=== PATIENT | female | born 1955 ===

== ENCOUNTER 2016-12-14 15:46 | Observation (INO) | payer MEDICARE, MEDICAID ==
[2016-12-14 15:51] VITALS: BMI 35.0
[2016-12-14] MEDS ORDERED: Sodium Chloride 0.9% 1,000 ML IV ONE (15:55)
[2016-12-14 16:26] LABS: ADD MANUAL DIFF? NO
[2016-12-14 16:39] LABS: BASO # 0.02 K/mm3 (0.0-2.0); BASO % 0.5 % (0.0-3.0); BLOOD UREA NITROGEN 14 mg/dL (7-21); CALCIUM 9.6 mg/dL (8.4-10.5); CARBON DIOXIDE 23 mmol/L (21-33); CHLORIDE 98 mmol/L (98-107); EOS # 0.1 (0.0-0.7); EOS % 1.2 % (1.5-5.0); GFR AFRICAN-AMERICAN > 60; GRAN # 2.54 (1.4-6.5); GRAN % 61.4 % (50.0-68.0); HEMATOCRIT 39.3 % (36.0-48.0); LYMPH # 1.3 (1.2-3.4); LYMPH % 30.8 % (22.0-35.0); MAGNESIUM 1.4 mg/dL (1.7-2.2); MEAN CELL VOLUME 86.9 fL (80.0-105.0); MEAN CORPUSCULAR HEMOGLOBIN 31.4 pg (25.0-35.0); MEAN CORPUSCULAR HGB CONC 36.1 g/dl (31.0-37.0); MEAN PLATELET VOLUME 11.5 fl (7.0-11.0); MONO # 0.3 (0.1-0.6); MONO % 6.1 % (1.0-6.0); PLATELET COUNT 216 10^3/uL (120.0-450.0); POTASSIUM 3.9 mmol/L (3.6-5.0); RED CELL DISTRIBUTION WIDTH 12.8 % (11.5-14.5); SODIUM 133 mmol/L (132-148); TOTAL PROTEIN 7.5 g/dL (5.8-8.3); WHITE BLOOD COUNT 4.1 10^3/ul (4.5-11.0)
[2016-12-14 16:40] LABS: ALB/GLOB RATIO 1.2 (1.1-1.8); ALKALINE PHOSPHATASE 244 U/L (38-133); ALT/SGPT 113 U/L (7-56); AST/SGOT 89 U/L (15-39); BILIRUBIN,TOTAL 0.7 mg/dL (0.2-1.3)
--- NOTE | 2016-12-14 16:40 | ED PDOC ---
Arrival/HPI - General Chief Complaint: Chest Pain Time Seen by Provider: 12/14/16 15:49 Historian: Patient - History of Present Illness Narrative History of Present Illness (Text): 12/14/16 16:18 Paige Agosto is a 61 year old female whose past medical history includes diabetes, who presents to the emergency department complaining of elevated blood sugar, headache/dizziness, dry cough, and mid-sternal chest pain that radiates to the right arm. Patient also states upon arrival as per EMS she was told she fell but has no recollection of this event. Patient was seen at [facility] for elevated blood sugar. Patient reports she just recently ran out of insulin and has only been using her sugar pills. Patient denies any fever, chills, shortness of breath, nausea, vomiting, diarrhea, urinary symptoms , back pain, neck pain, or any other complaints. PMD: None [facility] Provider Time/Duration: 24 hours Symptom Onset: Gradual Symptom Course: Unchanged Activities at Onset: Light Context: Home Past Medical History - Provider Review Nursing Documentation Reviewed: Yes - Reproductive Menopause: Yes - Cardiac Hx Hypertension: Yes Other/Comment: SD - Pulmonary Hx Asthma: Yes - Neurological HX Cerebrovascular Accident: Yes (8 years ago, uses cane) - HEENT Hx HEENT Disorder: No - Renal Hx Renal Disorder: No - Endocrine/Metabolic Hx Diabetes Mellitus Type 1: Yes - Hematological/Oncological Hx Hepatitis C: Yes - Integumentary Hx Dermatological Disorder: No - Musculoskeletal/Rheumatological Hx Arthritis: Yes Hx Falls: Yes - Gastrointestinal Hx Gastroesophageal Reflux: Yes Hx Pancreatitis: Yes - Genitourinary/Gynecological Hx Genitourinary Disorders: No - Psychiatric Hx Anxiety: Yes Hx Depression: Yes Hx Substance Use: No - Surgical History Hx Hysterectomy: Yes Other/Comment: R ankle surgery - Anesthesia Hx Anesthesia Reactions: No Hx Malignant Hyperthermia: No Family/Social History - Physician Review Nursing Documentation Reviewed: Yes Family/Social History: No Known Family HX Smoking Status: Current Some Days Smoker Hx Alcohol Use: Yes Hx Substance Use: No Allergies/Home Meds Allergies/Adverse Reactions: Allergies aspirin Allergy (Verified 05/29/16 13:05) RASH ibuprofen [From Motrin] Allergy (Verified 05/29/16 13:05) RASH Home Medications: Home Meds Medication Instructions Recorded Confirmed Gabapentin [Neurontin] 300 mg PO TID PRN 12/14/16 12/14/16 traMADol [Ultram] 50 mg PO TID PRN 12/14/16 12/14/16 Review of Systems - Physician Review All systems were reviewed & negative as marked: Yes - Review of Systems Constitutional: Normal. absent: Fevers Eyes: Normal ENT: Normal Respiratory: Cough (Dry). absent: SOB, Sputum Cardiovascular: Chest Pain (Midsternal chest pain that radiates to the right arm ), Syncope (Possible) Gastrointestinal: Normal Genitourinary Female: Normal Musculoskeletal: Normal Skin: Normal Neurological: Headache, Dizziness Endocrine: Normal Hemo/Lymphatic: Normal Psychiatric: Normal Physical Exam Vital Signs Temp Pulse Resp BP Pulse Ox 12/14/16 18:06 76 18 113/56 L 97 12/14/16 16:56 98 F 77 16 105/67 96 12/14/16 16:02 98.2 F 80 18 112/70 98 Finger Stick Blood Glucose: 487 - Systems Exam Head: Present: Atraumatic, Normocephalic Pupils: Present: PERRL Extroacular Muscles: Present: EOMI Conjunctiva: Present: Normal Mouth: Present: Moist Mucous Membranes Neck: Present: Normal Range of Motion Respiratory/Chest: Present: Clear to Auscultation, Good Air Exchange. No: Respiratory Distress, Accessory Muscle Use Cardiovascular: Present: Regular Rate and Rhythm, Normal S1, S2. No: Murmurs Abdomen: Present: Normal Bowel Sounds. No: Tenderness, Distention, Peritoneal Signs Back: Present: Normal Inspection Upper Extremity: Present: Normal Inspection. No: Cyanosis, Edema Lower Extremity: Present: Normal Inspection. No: Edema Neurological: Present: GCS=15, CN II-XII Intact, Speech Normal Skin: Present: Warm, Dry, Normal Color. No: Rashes Psychiatric: Present: Alert, Oriented x 3, Normal Insight, Normal Concentration Medical Decision Making ED Course and Treatment: 12/14/16 16:18 Impression: 61 year old female complaining of mid-sternal chest pain that radiates to right arm. Reported elevated blood sugar & possible syncopal episode. Plan: -- Head CT -- Chest X-ray -- EKG -- VBG -- Urine Culture -- Labs, Cardiac Enzymes -- IV Fluids -- Reassess and disposition Prior Visits: Notes and results from previous visits were reviewed. Patient was last seen in the emergency department on 05/29/16 for back pain. Progress Notes: 12/14/16 19:[address] Avila who accepts patient into his service and will admit patient. - Lab Interpretations Lab Results: 12/14/16 16:20 12/14/16 16:20 Lab Results 12/14/16 16:20: pO2 45, VBG pH 7.30 L, VBG pCO2 47.0, VBG HCO3 23.1, VBG Total CO2 24.5, VBG O2 Sat (Calc) 80.5 H, VBG Base Excess -3.6 L, VBG Potassium 4.1, Sodium 135.0, Chloride 99.0, Glucose 606 H*, Lactate 2.3 H, FiO2 21.0, Venous Blood Potassium 4.1 12/14/16 16:20: Sodium 133, Chloride 98, Potassium 3.9, Carbon Dioxide 23, Anion Gap 16, BUN 14, Creatinine 0.8, Est GFR ( Amer) > 60, Est GFR (Non- Af Amer) > 60, Random Glucose 617 H* D, Calcium 9.6, Magnesium 1.4 L, Total Bilirubin 0.7, AST 89 H, ALT 113 H, Alkaline Phosphatase 244 H, Lactate Dehydrogenase 449, Total Creatine Kinase 43, Troponin I < 0.01, Total Protein 7.5, Albumin 4.1, Globulin 3.4, Albumin/Globulin Ratio 1.2 12/14/16 16:20: WBC 4.1 L, RBC 4.52, Hgb 14.2, Hct 39.3, MCV 86.9, MCH 31.4, MCHC 36.1, RDW 12.8, Plt Count 216, MPV 11.5 H, Gran % 61.4, Lymph % (Auto) 30.8 , Robertson % (Auto) 6.1 H, Eos % (Auto) 1.2 L, Baso % (Auto) 0.5, Gran # 2.54, Lymph # 1.3, Robertson # 0.3, Eos # 0.1, Baso # 0.02 12/14/16 15:52: Urine Color Yellow, Urine Appearance Clear, Urine pH 6.0, Ur Specific [place] 1.010, Urine Protein Negative, Urine Glucose (UA) >=1000, Urine Ketones Trace H, Urine Blood Negative, Urine Nitrate Negative, Urine Bilirubin Negative, Urine Urobilinogen 0.2, Ur Leukocyte Esterase Negative I have reviewed the lab results: Yes - RAD Interpretation Radiology Orders: 12/14/16 15:53 HEAD W/O CONTRAST [CT] Stat CHEST PORTABLE [RAD] Stat Director Digital Communications: Radiologist - Medication Orders Current Medication Orders: Discontinued Medications Acetaminophen (Tylenol 325mg Tab) 975 mg PO STAT STA Stop: 12/14/16 17:44 Last Admin: 12/14/16 18:04 Dose: 975 mg Sodium Chloride (Sodium Chloride 0.9%) 1,000 mls @ 250 mls/hr IV .Q4H ONE Stop: 12/14/16 19:54 Last Admin: 12/14/16 16:05 Dose: 250 mls/hr Insulin Human Regular (Humulin R) 6 units IV STAT STA Stop: 12/14/16 17:21 Last Admin: 12/14/16 17:35 Dose: 6 units - Scribe Statement The provider has reviewed the documentation as recorded by the Sanford Buchanan Provider Attestation: All medical record entries made by the Sanford were at my direction and personally dictated by me. I have reviewed the chart and agree that the record accurately reflects my personal performance of the history, physical exam, medical decision making, and the department course for this patient. I have also personally directed, reviewed, and agree with the discharge instructions and disposition. Disposition/Present on Arrival - Present on Arrival Any Indicators Present on Arrival: Yes History of DVT/PE: No History of Uncontrolled Diabetes: Yes Urinary Catheter: No History of Decub. Ulcer: No History Surgical Site Infection Following: None - Disposition Have Diagnosis and Disposition been Completed?: Yes Diagnosis: Hyperglycemia, Chest pain, Syncope Disposition: HOSPITALIZED Disposition Time: 17:00 Condition: STABLE
[2016-12-14 16:45] LABS: VENOUS BLOOD GAS BASE EXCESS -3.6 mmol/L (0.0-2.0)
[2016-12-14 16:52] LABS: TROPONIN I < 0.01 ng/mL
[2016-12-14 16:58] LABS: URINE APPEARANCE CLEAR (CLEAR); URINE BILIRUBIN NEGATIVE (NEGATIVE); URINE BLOOD NEGATIVE (NEGATIVE); URINE COLOR YELLOW (YELLOW); URINE GLUCOSE (UA) >=1000 mg/dL (NEGATIVE); URINE KETONE TRACE mg/dL (NEGATIVE); URINE LEUKOCYTE ESTERASE NEGATIVE Leu/uL (NEGATIVE); URINE PROTEIN NEGATIVE mg/dL (<30 mg/dL); URINE UROBILINOGEN 0.2 E.U./dL (<1 E.U./dL)
[2016-12-14 16:58] LABS: GLUCOSE,RANDOM 617 mg/dL (70-110)
--- NOTE | 2016-12-14 17:14 | RAD ---
HISTORY: chest pain COMPARISON: 05/29/2016 FINDINGS: LUNGS: No active pulmonary disease. PLEURA: No significant pleural effusion identified, no pneumothorax apparent. CARDIOVASCULAR: Normal. OSSEOUS STRUCTURES: No significant abnormalities. VISUALIZED UPPER ABDOMEN: Normal. OTHER FINDINGS: None. IMPRESSION: No active disease.
[2016-12-14] MEDS ORDERED: Insulin Regular 1 UNITS/0.01 ML ML IV STA (17:20)
[2016-12-14] MEDS ORDERED: Magnesium Sulfate 2 GM in Sodium Chloride 0.9% 100 ML IVPB ONE (22:17)
[2016-12-14] MEDS: Insulin Reg-HIGH-Coverage SC SCH (22:19)
[2016-12-14] MEDS: Sodium Chloride 0.9% 1,000 ML IV SCH (22:37)
--- NOTE | 2016-12-14 22:37 | CP.PCM.PN ---
Subjective - Date & Time of Evaluation Date of Evaluation: 12/14/16 Time of Evaluation: 22:32 - Subjective Subjective: Patient was seen for complaint of nausea. Denies vomiting, sob, sweating , palpitation. Has chest pain across lower anterior chest which is going away, now at 6/10. Also requests trazodone for nerves. Has no other complaints. This 61 year old woman is admitted with mid sternal chest pain, head ache, dizziness ,dry cough, hyperglycemia. Has PMH of DM ,HTN, MA, DM I, asthma , CVA, hepatitis C, pancreatitis, GERD, obesity. Objective - Vital Signs/Intake and Output Vital Signs (last 24 hours): Temp Pulse Resp BP Pulse Ox 98 F 64 18 102/63 95 12/14/16 16:56 12/14/16 21:33 12/14/16 21:33 12/14/16 21:33 12/14/16 21:33 - Medications Medications: Current Medications Clopidogrel Bisulfate (Plavix) 75 mg PO DAILY [facility] Enoxaparin Sodium (Lovenox) 40 mg SC DAILY [facility] Gabapentin (Neurontin) 300 mg PO TID PRN PRN Reason: Pain, Mild (1-3) Sodium Chloride (Sodium Chloride 0.9%) 1,000 mls @ 100 mls/hr IV .Q10H [facility] Magnesium Sulfate 2 gm/ Sodium (Chloride) 104 mls @ 102 mls/hr IVPB ONCE ONE Stop: 12/14/16 23:18 Insulin Human NPH (Humulin N) 55 units SC ACBD [facility] Insulin Human Regular (Humulin R High) 0 units SC ACHS [facility] Last Admin: 12/14/16 22:19 Dose: Not Given Lisinopril (Zestril) 2.5 mg PO DAILY [facility] Metoprolol Tartrate (Lopressor) 25 mg PO BRKDIN [facility] Pantoprazole Sodium (Protonix Ec Tab) 40 mg PO ACB [facility] Tramadol HCl (Ultram) 50 mg PO TID PRN PRN Reason: Pain, moderate (4-7) - Constitutional Appears: Well, No Acute Distress - Head Exam Head Exam: ATRAUMATIC, NORMAL INSPECTION, NORMOCEPHALIC - Eye Exam Eye Exam: Normal appearance - ENT Exam ENT Exam: Normal External Ear Exam - Neck Exam Neck Exam: Normal Inspection - Respiratory Exam Respiratory Exam: NORMAL BREATHING PATTERN - Cardiovascular Exam Cardiovascular Exam: absent: JVD - GI/Abdominal Exam GI & Abdominal Exam: Soft, Normal Bowel Sounds. absent: Distended, Firm, Guarding, Rigid, Tenderness, Mass, Pulsatile Mass, Rebound - Rectal Exam Rectal Exam: Deferred - Extremities Exam Extremities Exam: Normal Inspection - Back Exam Back Exam: NORMAL INSPECTION - Neurological Exam Neurological Exam: Alert, Oriented x3 - Psychiatric Exam Psychiatric exam: Normal Affect, Normal Mood - Skin Skin Exam: Normal Color Assessment and Plan - Assessment and Plan (Free Text) Assessment: Nausea. Insomnia. Chest pain. Hyperglyceimia. Hypomagnesemia. GERD. Gastroparesis. DM I. HTN. CAD. History MA. Obesity. Plan: Zofran 4 mg IV x once. Protonix 40 mg I V x once. Mag Giovanni 2 Gm IV stat. No record of trazodone found. Will give benadryl for sleep prn.
[2016-12-15 06:31] LABS: ADD MANUAL DIFF? NO
[2016-12-15 06:43] LABS: BASO # 0.02 K/mm3 (0.0-2.0); BASO % 0.5 % (0.0-3.0); EOS # 0.2 (0.0-0.7); EOS % 4.1 % (1.5-5.0); GRAN % 45.9 % (50.0-68.0); HEMATOCRIT 36.7 % (36.0-48.0); LYMPH # 1.8 (1.2-3.4); LYMPH % 42.5 % (22.0-35.0); MEAN CELL VOLUME 87.2 fL (80.0-105.0); MEAN CORPUSCULAR HEMOGLOBIN 30.9 pg (25.0-35.0); MEAN CORPUSCULAR HGB CONC 35.4 g/dl (31.0-37.0); MEAN PLATELET VOLUME 11.2 fl (7.0-11.0); MONO # 0.3 (0.1-0.6); PLATELET COUNT 215 10^3/uL (120.0-450.0); RED CELL DISTRIBUTION WIDTH 12.8 % (11.5-14.5); WHITE BLOOD COUNT 4.1 10^3/ul (4.5-11.0)
[2016-12-15 06:54] LABS: ALB/GLOB RATIO 1.2 (1.1-1.8); ALKALINE PHOSPHATASE 139 U/L (38-133); ALT/SGPT 114 U/L (7-56); AST/SGOT 101 U/L (15-39); BILIRUBIN,TOTAL 0.9 mg/dL (0.2-1.3); BLOOD UREA NITROGEN 12 mg/dL (7-21); CARBON DIOXIDE 25 mmol/L (21-33); CHLORIDE 101 mmol/L (98-107); GFR AFRICAN-AMERICAN > 60; POTASSIUM 4.1 mmol/L (3.6-5.0); SODIUM 134 mmol/L (132-148); TOTAL PROTEIN 7.1 g/dL (5.8-8.3)
[2016-12-15 07:04] LABS: GLUCOSE,RANDOM 302 mg/dL (70-110)
[2016-12-15] MEDS: Pantoprazole 40 mg EC Tab PO SCH (08:28)
[2016-12-15] MEDS: Insulin Reg-HIGH-Coverage SC SCH ×4 (08:29→21:35)
[2016-12-15] MEDS: Insulin Human NPH 1 UNITS/0.01 ML SC SCH ×2 (08:29→18:25)
--- NOTE | 2016-12-15 09:11 | CT ---
PROCEDURE: CT HEAD WITHOUT CONTRAST. HISTORY: r/o ICH COMPARISON: None available. TECHNIQUE: Axial computed tomography images were obtained through the head/brain without intravenous contrast. Radiation dose: Total exam DLP = 688 mGy-cm. This CT exam was performed using one or more of the following dose reduction techniques: Automated exposure control, adjustment of the mA and/or kV according to patient size, and/or use of iterative reconstruction technique. FINDINGS: HEMORRHAGE: No intracranial hemorrhage. BRAIN: No mass effect or edema. No atrophy or chronic microvascular ischemic changes. VENTRICLES: Unremarkable. No hydrocephalus. CALVARIUM: Unremarkable. PARANASAL SINUSES: Unremarkable as visualized. No significant inflammatory changes. MASTOID AIR CELLS: Unremarkable as visualized. No inflammatory changes. OTHER FINDINGS: The report concurs with the preliminary [facility] report IMPRESSION: No acute finding
[2016-12-15] MEDS: Enoxaparin 40 mg Syringe SC SCH (11:03)
--- NOTE | 2016-12-15 12:07 | CARD ---
APPROVED REPORT EKG Measurement Heart [id number] <Conclusion> Sinus bradycardia Otherwise normal ECG
[2016-12-15] MEDS: Sodium Chloride 0.9% 1,000 ML IV SCH (21:36)
--- NOTE | 2016-12-15 22:09 | CON ---
DATE: 12/15/2016 REASON FOR CONSULTATION AND FOLLOWUP: Cardiac evaluation, neck pain, chest pain, abnormal EKG. BRIEF CLINICAL HISTORY: This is a 61-year-old female with past medical history of diabetes who prese nted to the Emergency Room, recently came back from [place], came with elevated blood sugar, dizz iness, headache and neck pain, sometimes it radiates to the chest. The patient complained of dyspnea on exertion. The patient was recently admitted to [facility] with uncontrolled diab etes, but says that she ran out of insulin ____ so came in here. PAST MEDICAL HISTORY: Significant for diabetes, hypertension, hyperlipidemia, denies any history of coronary artery disease, but complained of shortness of breath. SOCIAL HISTORY: Denies any history of alcohol abuse. CURRENT MEDICATIONS: The patient is taking tramadol, Protonix, lisinopril, insulin, gabapentin and c lopidogrel. REVIEW OF SYSTEMS: As per HPI. PHYSICAL EXAMINATION: VITAL SIGNS: Temperature afebrile, heart rate 60, blood pressure 100/64. HEENT: PERRLA. Extraocular muscles intact. NECK: Supple. No carotid bruits. No thyromegaly. CHEST: Clear to auscultation. HEART: S1, S2 regular. ABDOMEN: Soft. EXTREMITIES: Clubbing and cyanosis negative. EKG shows normal sinus, low voltage, heart rate 60. Repeat EKG done shows normal sinus, T inversion. No acute ST-T changes noted. BLOOD WORKUP: WBC ____, hemoglobin 13, hematocrit 36.7, platelet count 215. Chemistry shows sodium 134, potassium ____, chloride 101, carbon dioxide 25, anion gap of ____, BUN 12, creatinine 0.7, bloo d sugar 302. Troponin 0.01 x 2 negative. IMPRESSION AND PLAN: Atypical chest pain, neck pain, uncontrolled diabetes. Because of multiple ris k factors for coronary artery disease, suggest echo and stress thallium as outpatient. The patient c an be discharged when blood sugar is stabilized and followup stress test as outpatient. We will foll ow with you. Thank you, Dr. Villalobos, for providing the opportunity in taking care of this patient. Maria Isabel Kearney MD cc: [id number] TT: 12/15/2016 22:08:12 Confirmation # [id number] Dictation # [id number] rn
--- NOTE | 2016-12-15 22:36 | HP ---
Covering Dr. Familia Villalobos. REASON FOR ADMISSION: Chest pain and shortness of breath. HISTORY OF PRESENT ILLNESS: This is a 61-year-old female with past medical history significant for dre powell, history of stroke, gastroparesis, been on Reglan, also has a history of depression/adjustmen t disorder, recently discharged from [facility]. According to the patient, she did n ot have insulin, and on the day of permission not feeling well, had chest pain, came to the Emergency Room and she was kept for further investigation. PAST MEDICAL HISTORY: Remote history of stroke, diabetes, GERD, gastroparesis, depression/adjustment disorder, hypertension, history of NV, arthritis, multiple falls. ALLERGIES: ASPIRIN AND IBUPROFEN. HOME MEDICATIONS: She was on gabapentin and tramadol. Supposed to be on insulin, but ran out of it. FAMILY HISTORY: No significant cardiopulmonary disease reported. SOCIAL HISTORY: Denies any smoking or alcohol use. MEDICATIONS: She is started on insulin, which her usual dose is NPH 55 units subQ a.c.b.d., also on insulin coverage. Metoprolol tartrate 25 mg twice a day, Lovenox 40 mg daily, Neurontin 300 mg q. 8 hours p.r.n., Plavix 75 mg daily, Protonix 40 mg daily, IV fluid normal saline 100 mL per hour, Ultra m 50 mg q. 8 hours p.r.n., Zestril 2.5 mg daily. REVIEW OF SYSTEMS: No headache, no rhinitis, no cough, substernal chest discomfort. She also compla ined of constipation, mild nausea and epigastric discomfort. No leg pain or leg swelling. Also comp laining of snoring, daytime sleepy and tired. PHYSICAL EXAMINATION: VITAL SIGNS: Temp is 98, heart rate is 59, respiratory rate is 20, blood pressure 92/55, pulse ox 98 % on nasal cannula. HEENT: Moist mucous membranes. Crowded airway. Mallampati score is 4. NECK: Supple, no JVD. LUNGS: Has fair airflow. HEART: S1, S2. ABDOMEN: Positive epigastric area tenderness, otherwise soft abdomen. EXTREMITIES: There is no edema. NEUROLOGIC: The patient is alert. Has a right-sided residual weakness from the stroke. LABORATORY DATA: Shows hemoglobin 13.0, hematocrit 36.7, WBC 4.1, platelets is 215. Blood gas VBG shows pH , pCO2 of 47, O2 of 45. Sodium 134, potassium 4.1, chloride 101, bicarbonate 25, BUN 12, creatinine 0.7, glucose 308. Lactic acid 1.1, calcium 9.0, AST 101, ALT 114, alkaline phosph atase is 136. Troponin less than 0.01. Albumin is 3.8. EKG done today, which shows sinus bradycard ia. IMPRESSION AND PLAN: Nonspecific chest pain, history of cerebrovascular accident in the remote past, hypertension, diabetes, gastroparesis, may have a sleep apnea syndrome. We will restart Reglan 10 m g q.i.d. We will request GI and cardiology see the patient. Follow up labs in the morning. Thank jean-pierre tom. Maria Isabel Avila MD cc: [facility] TT: 12/15/2016 22:35:52 chelle
[2016-12-16] MEDS: Sodium Chloride 0.9% 1,000 ML IV SCH ×2 (03:17→18:02)
[2016-12-16 07:38] LABS: ADD MANUAL DIFF? NO
[2016-12-16 07:42] LABS: BASO # 0.02 K/mm3 (0.0-2.0); BASO % 0.4 % (0.0-3.0); EOS # 0.2 (0.0-0.7); EOS % 3.4 % (1.5-5.0); GRAN # 2.39 (1.4-6.5); GRAN % 44.7 % (50.0-68.0); HEMATOCRIT 35.4 % (36.0-48.0); LYMPH # 2.3 (1.2-3.4); LYMPH % 42.5 % (22.0-35.0); MEAN CELL VOLUME 86.8 fL (80.0-105.0); MEAN CORPUSCULAR HEMOGLOBIN 31.1 pg (25.0-35.0); MEAN CORPUSCULAR HGB CONC 35.9 g/dl (31.0-37.0); MEAN PLATELET VOLUME 11.1 fl (7.0-11.0); MONO # 0.5 (0.1-0.6); PLATELET COUNT 211 10^3/uL (120.0-450.0); RED CELL DISTRIBUTION WIDTH 12.7 % (11.5-14.5); WHITE BLOOD COUNT 5.3 10^3/ul (4.5-11.0)
[2016-12-16 08:01] LABS: ALB/GLOB RATIO 1.1 (1.1-1.8); ALKALINE PHOSPHATASE 103 U/L (38-133); ALT/SGPT 116 U/L (7-56); AST/SGOT 107 U/L (15-39); BILIRUBIN,TOTAL 0.5 mg/dL (0.2-1.3); BLOOD UREA NITROGEN 12 mg/dL (7-21); CALCIUM 9.2 mg/dL (8.4-10.5); CARBON DIOXIDE 26 mmol/L (21-33); CHLORIDE 104 mmol/L (98-107); CHOLESTEROL 92 mg/dL (130-200); GFR AFRICAN-AMERICAN > 60; GLUCOSE,RANDOM 83 mg/dL (70-110); MAGNESIUM 1.5 mg/dL (1.7-2.2); PHOSPHOROUS 3.2 mg/dL (2.5-4.5); POTASSIUM 3.5 mmol/L (3.6-5.0); SODIUM 138 mmol/L (132-148); TOTAL PROTEIN 6.7 g/dL (5.8-8.3)
[2016-12-16 08:12] LABS: TROPONIN I < 0.01 ng/mL
[2016-12-16] MEDS: Insulin Reg-HIGH-Coverage SC SCH ×4 (08:23→22:26)
[2016-12-16] MEDS: Insulin Human NPH 1 UNITS/0.01 ML SC SCH ×2 (10:42→18:09)
[2016-12-16] MEDS: Enoxaparin 40 mg Syringe SC SCH (10:50)
[2016-12-16] MEDS: Pantoprazole 40 mg EC Tab PO SCH (10:50)
--- NOTE | 2016-12-16 13:36 | PN ---
DATE: 12/16/2016 REASON FOR CONSULTATION AND FOLLOWUP: Cardiac evaluation, neck pain, chest pain, abnormal EKG, tende rness on the chest. BRIEF CLINICAL HISTORY: A 61-year-old female with a past medical history significant for diabetes wh o presented to the Emergency Room, recently came back from [place], complaining of elevated blood sugar, dizziness, headache and neck pain, sometimes radiates to the chest. Still, chest has tendern ess. The patient recently discharged from [facility] for uncontrolled diabetes ran out of insulin. PHYSICAL EXAMINATION: VITAL SIGNS: Temperature afebrile, heart rate 56, blood pressure 120/62. HEENT: PERRLA. Extraocular muscles intact. NECK: Supple. No carotid bruits. No thyromegaly. CHEST: Clear to auscultation. HEART: S1, S2 regular. ABDOMEN: Soft. EXTREMITIES: Clubbing, cyanosis negative. BLOOD WORKUP: WBC 5. , hemoglobin 12. , hematocrit 35.4, platelet count 211. Chemistry show s sodium 130, potassium 3.5, chloride 104, carbon dioxide 26, anion gap of 12, BUN 12, creatinine 0.7 . Hemoglobin A1c 10.7. TSH 6.65. Troponin 0.01 x 3, negative. IMPRESSION: Atypical chest pain, tenderness on the chest, uncontrolled diabetes manifested by hemogl obin A1c 10.7, hypothyroidism, obesity, diabetes, hypertension, hyperlipidemia, no evidence of acute coronary syndrome, atypical chest pain. Given the multiple risk factors for coronary artery disease, suggest echo and a stress test tomorrow. Supplement levothyroxine. Aggressive control of blood sugar. Will follow with you. Thank you, Dr. Villalobos/ , for providing us the opportunity in taking care of the patient. Maria Isabel Kearney MD cc: [id number] TT: 12/16/2016 13:36:09 Confirmation # [id number] Dictation # [id number] en
[2016-12-16] MEDS: Potassium Chloride 10 mEq ER Tab PO SCH (14:13)
--- NOTE | 2016-12-16 20:54 | PN ---
DATE: 12/16/2016 REFERRING PHYSICIAN: Dr. Villalobos. SUBJECTIVE: She is lying in the bed, has some cough, muscular type bilateral chest pain. Admits to having snoring and daytime sleepy. No nausea, no vomiting, diarrhea. No leg pain or leg swelling. OBJECTIVE: GENERAL: In no acute distress. VITAL SIGNS: Temp is 98, heart rate is 64, respiratory rate is 20, blood pressure 129/73. HEENT: Moist mucous membranes. Crowded airway. Mallampati score is 4. NECK: Supple. No JVD. LUNGS: Have scattered rhonchi. HEART: S1, S2. ABDOMEN: Soft, nontender. No organomegaly. EXTREMITIES: There is no edema. NEUROLOGIC: Awake, alert, follows simple commands. MEDICATIONS: She is on insulin coverage, potassium 10 mEq daily, metoprolol tartrate 25 mg twice a d ay, Lovenox 40 mg daily, Neurontin 300 mg 3 times a day p.r.n., Plavix 75 mg daily, Protonix 40 mg [place], Reglan 10 mg a.c. and at bedtime, IV fluid normal saline 100 mL per hour, Synthroid 25 mcg 50 mg 3 times a day p.r.n., Zestril 2.5 mg daily. LABORATORY DATA: Shows hemoglobin 12.7, hematocrit 35.4, WBC 5.3, platelet is 211. Blood gases done yesterday shows VBG, pH 7.30, pCO2 47, O2 45. Sodium 138, potassium 3.5, chloride 104, bicarbonate 26, BUN 12, creatinine 0.7, glucose is 83. Hemoglobin A1c 10.7, calcium 9.2. AST 107, ALT 116, alk phos is 103, albumin is 3.5. TSH 6.68. Cholesterol is 92. Urine culture is contaminated. IMPRESSION AND PLAN: Chronic obstructive lung disease, hypertension, diabetes, gastroparesis, nonspe cific chest pain. May have a component of sleep apnea syndrome. The patient is urged to stop smokin g. Will add Solu-Medrol 20 mg q. 12 hours, inhaled bronchodilator, doxycycline 100 mg twice a day. Need attended sleep study as an outpatient. Thank you and will follow with you. Maria Isabel Avila MD cc: [id number] TT: 12/16/2016 20:53:55 Confirmation # [id number] Dictation # [id number] mn
--- NOTE | 2016-12-16 21:55 | CON ---
DATE: 12/16/2016 HISTORY OF PRESENT ILLNESS: This patient was seen and evaluated earlier today. Discussed with Dr. Hung haines. This is a 61-year-old patient with a past medical history of diabetes mellitus, chronic hepat itis C, gastroesophageal reflux disease, chronic liver disease, depression, constipation, gastropares is, peripheral neuropathy, poorly compliant, admitted with dizziness, headache, and elevated blood gutierrez gar level. The patient also complains of some midsternal chest discomfort. GI consult was requested to evaluate atypical chest pain. The patient was hospitalized in February with pancreatitis, probabl y secondary to the medication Onglyza. The patient had multiple workups done including CT-MRI of the pancreas, which was unremarkable. The patient has a history of celiac periportal lymphadenopathy. A was done in 08/2015, found to have normal pancreas. The lymph nodes were initially thought to be at that time reactive type of lymphadenopathy. At the time, the plan was to follow up. The brian ent was advised to follow up with the big data platform architect and also follow up with assistant brand manager. [facility]. Her other past medical history significant as above. ALLERGIES: ALLERGIC TO ASPIRIN, IBUPROFEN. FAMILY HISTORY: Noncontributory. SOCIAL HISTORY: Denies smoking. No alcohol. REVIEW OF SYSTEMS: Positive as above. Other systems reviewed, negative. PHYSICAL EXAMINATION: GENERAL: The patient is lying on the bed, not in acute distress. VITAL SIGNS: Temperature 98, blood pressure is 93/57, respirations 19. HEENT: Atraumatic, anicteric. NECK: Supple. HEART: S1, S2 heard. LUNGS: Bilateral air entry present. ABDOMEN: Soft. There was some mild tenderness present. She describes about a lump in the area, whi ch there is a small ventral hernia present. Reducible. EXTREMITIES: No cyanosis, no clubbing. NEUROLOGIC: Alert, oriented. Moves all extremities. LABORATORY DATA: Hemoglobin 12.7, hematocrit 35.4, WBC is 5.3, platelets 211. Potassium 3.5, being supplemented. Hemoglobin A1c 10.7. AST 107, ALT 116. TSH is elevated at 6.68. IMPRESSION: This 61-year-old patient admitted with elevated blood sugar level, has elevated blood gutierrez gar level, dizziness, and headache. She also complains of chest discomfort. She stated recently ret urned from [place]. History of chronic hepatitis C. History of periportal lymphadenopathy. History of pancreatitis, probably related to drug induced. W orkup done in the past was negative. The patient did have an extensive workup done in the past. Chronic liver disease. History of gastroparesis, gastroesophageal reflux disease. RECOMMENDATION: 1. Continue the PPI. 2. The patient would benefit from p.o. and IV contrast CAT scan with pancreatic protocol to further evaluate. 3. The patient was again discussed about the importance of having treatment for hep C, which the alan atment presently is very efficacious. This was explained to the patient and patient's daughter even before, and this can be followed up as an outpatient. Will continue to closely follow up the patient and suggest further recommendation based on the clinical course. Mack Figueroa MD cc: [id number] TT: 12/16/2016 21:54:44 Confirmation # [id number] Dictation # [id number] isreal
[2016-12-16] MEDS: MethylPREDNISolone 40 mg Vial IVP SCH (22:29)
[2016-12-17] MEDS: Albuterol-Ipratrop 3 mg / 0.5 (3 ml) UD IH SCH ×4 (01:20→20:30)
[2016-12-17] MEDS: Sodium Chloride 0.9% 1,000 ML IV SCH ×2 (02:44→19:45)
[2016-12-17 07:19] LABS: BLOOD UREA NITROGEN 10 mg/dL (7-21); CALCIUM 9.4 mg/dL (8.4-10.5); CARBON DIOXIDE 24 mmol/L (21-33); CHLORIDE 104 mmol/L (95-110); CHOLESTEROL 107 mg/dL (130-200); GFR AFRICAN-AMERICAN > 60; GLUCOSE,RANDOM 200 mg/dL (70-110); POTASSIUM 3.9 mmol/L (3.6-5.0); SODIUM 137 mmol/L (132-148)
--- NOTE | 2016-12-17 08:14 | PN ---
DATE: 12/16/2016 The patient came in with chest pain, epigastric pain. Contrary, she still complained of epigastric d iscomfort. No respiratory distress. No nausea, no vomiting, afebrile. PHYSICAL EXAMINATION: VITAL SIGNS: Temperature 98.2, heart rate 57, blood pressure 125/75, respiratory rate 19, saturation 99%. HEAD AND NECK: Normal. No JVD, no thyromegaly. CHEST: Clear, good air entry. CARDIAC: First sound, second sound normal. ABDOMEN: There is tenderness in the epigastric area, also tenderness on the left side chest area. EXTREMITIES: No edema. NEUROLOGIC: Normal. LABORATORY DATA: Shows white count 5.4, hemoglobin 12.7, hematocrit 35.4, platelets 211. Chemistry shows sodium 138, potassium 3.5, chloride 104, bicarb 26, BUN 12, creatinine 0.7. Liver function cameron t: AST and ALT is elevated, AST 107, ALT 116, alkaline phosphatase is normal. Her magnesium is 1.5 and TSH 6.6. IMPRESSION AND PLAN: 1. Chest pain. Will get more further cardiac workup including stress test because of multiple risk factors including diabetes, hypertension, and hypercholesterolemia and hyperlipidemia. 2. Uncontrolled diabetes. The patient's hemoglobin A1c 10.7. This needs outpatient management. 3. Hepatitis, abnormal liver function tests. Will get hepatitis profile, GI consult, Dr. Figueroa. The patient may benefit from endoscopy and further workup with GI. 4. Hypothyroidism. Started on levothyroxine. Continue that. Monitor that as outpatient. 5. Obesity. The patient may benefit from sleep studies to evaluate for obstructive sleep apnea. Wi ll follow up with the pulmonary consult. 6. Gastritis. Continue Protonix. 7. Electrolyte abnormalities, low potassium, low magnesium. We will replace that. CURRENT MEDICATION: At this time, patient getting doxycycline 100 b.i.d., inhaled bronchodilator Duo Neb, insulin N 55 units before breakfast and dinner and Humulin regular coverage, potassium 10 once a day, Lopressor 25 once a day, Lovenox 40 subQ daily, Neurontin 300 t.i.d., Paxil 20 p.o. daily, Plav ix 75 mg p.o. daily, Protonix 40 IV daily, Solu-Medrol 20 IV q. 12, Synthroid 25 mcg, tramadol 50 p.o . t.i.d. and Zestril 2.5 mg p.o. daily. Continue current treatment. The patient will get a stress test. If it is negative, will be discharg ed. Will follow up as outpatient. Familia Villalobos MD cc: [phone] TT: 12/17/2016 08:13:52 Confirmation # [id number] Dictation # [id number]
[2016-12-17] MEDS: Insulin Reg-HIGH-Coverage SC SCH ×4 (08:43→22:05)
[2016-12-17] MEDS: Insulin Human NPH 1 UNITS/0.01 ML SC SCH ×2 (08:43→17:46)
[2016-12-17] MEDS ORDERED: Aminophylline 25 mg/ml Inj ONE (09:08)
--- NOTE | 2016-12-17 10:08 | US ---
HISTORY: abdominal pain, high lfts COMPARISON: None. TECHNIQUE: Sonographic evaluation of the right upper quadrant of the abdomen. FINDINGS: LIVER: Measures 20.7 cm in length. Diffusely increased echogenicity of the liver parenchyma. Smooth contour. No mass. No biliary ductal dilatation. GALLBLADDER: Cholelithiasis. Gallbladder sludge noted. No mural thickening or pericholecystic fluid. Negative sonographic Hein's sign. COMMON BILE DUCT: Measures 7 mm. No stones. No dilatation. PANCREAS: Unremarkable as visualized. No mass. No ductal dilatation. RIGHT KIDNEY: Measures 9.6 cm in length. Normal echogenicity. No calculus, mass, or hydronephrosis. AORTA: No aneurysmal dilatation. IVC: Unremarkable. OTHER FINDINGS: None . IMPRESSION: Hepatomegaly with diffuse fatty infiltration. Cholelithiasis without evidence of cholecystitis.
--- NOTE | 2016-12-17 10:16 | PN ---
DATE: 12/17/2016 REASON FOR CONSULTATION: Cardiac evaluation, neck pain, chest pain, abnormal EKG, tenderness in the chest. BRIEF CLINICAL HISTORY: The patient is a 61-year-old female with past medical history significant fo r diabetes who presented to the Emergency Room recently, came back from [place] complaining of el evated blood sugar, dizziness, headache and neck pain, sometimes radiates to the chest, is still very tender in the chest as well as neck pain. The patient recently discharged from [facility], admitted with uncontrolled hypertension. The patient says that she claims that she ran out o f medication for sugar insulin, came in here with complaint of chest pain. PHYSICAL EXAMINATION: VITAL SIGNS: Temperature afebrile, heart rate 56, blood pressure 142/80. HEENT: PERRLA. Extraocular muscles intact. NECK: Supple. No carotid bruits. No thyromegaly. CHEST: Clear to auscultation. HEART: S1, S2 regular. ABDOMEN: Soft. EXTREMITIES: Clubbing and cyanosis negative. LABORATORY DATA: Blood workup as follows: WBC 5.3, hemoglobin ____, hematocrit 35.4, platelet count 211. Chemistry shows sodium ____, potassium ____, chloride ____, carbon dioxide 24, anion gap of 13 , BUN 10, creatinine 0.6. IMPRESSION AND PLAN: Atypical chest pain. Given the multiple risk factors for coronary artery disea se, obesity, diabetes, hypertension, hyperlipidemia, uncontrolled diabetes, very poorly controlled, s uggest echo and stress test. Further recommendation after the stress test. In the interim, continue aggressive medical treatment, control blood sugar. Goal is to keep ____ 100, hemoglobin A1c around 6. Continue to aggressively control blood pressure. Continue deep venous thrombosis prophylaxis. W e will follow with you. Thank you, Dr. Villalobos, for providing the opportunity in taking care of this patient. Maria Isabel Kearney MD cc: [id number] TT: 12/17/2016 10:15:29 Confirmation # [id number] Dictation # [id number]
[2016-12-17] MEDS: Magnesium Oxide 400 mg Tab UD PO SCH ×2 (12:31→17:44)
[2016-12-17] MEDS: Pantoprazole 40 mg EC Tab PO SCH (12:32)
[2016-12-17] MEDS: Potassium Chloride 10 mEq ER Tab PO SCH (12:32)
[2016-12-17] MEDS: Levothyroxine 25 MCG TAB PO SCH (12:33)
[2016-12-17] MEDS: Enoxaparin 40 mg Syringe SC SCH (12:34)
[2016-12-17] MEDS: MethylPREDNISolone 40 mg Vial IVP SCH ×2 (12:35→22:00)
--- NOTE | 2016-12-17 13:11 | CP.PCM.PN ---
Subjective - Date & Time of Evaluation Date of Evaluation: 12/17/16 Time of Evaluation: 12:30 - Subjective Subjective: Seen and evaluated this afternoon at bedside, s/p stress test, reproted to be negative. Still have epigastric pain, no acute distress, no N/V, SOB. She is eating lunch. Went for abdominal US and found fatty liver,GB stones and Sludge and cbd 7mm, no CBD stone or dilitation. Objective - Vital Signs/Intake and Output Vital Signs (last 24 hours): Temp Pulse Resp BP Pulse Ox 97.9 F 74 20 172/86 H 100 12/17/16 06:00 12/17/16 12:32 12/17/16 06:00 12/17/16 12:32 12/17/16 06:00 Intake and Output: 12/17/16 12/17/16 06:59 18:59 Intake Total 1440 Output Total 3 Balance 1437 - Medications Medications: Current Medications Albuterol/Ipratropium (Duoneb 3 Mg/0.5 Mg (3 Ml) Ud) 3 ml IH [id number] [facility] Last Admin: 12/17/16 07:48 Dose: 3 ml Clopidogrel Bisulfate (Plavix) 75 mg PO DAILY [facility] Last Admin: 12/17/16 12:33 Dose: 75 mg Doxycycline Hyclate (Doryx) 100 mg PO Q12 [facility] PRN Reason: Protocol Last Admin: 12/17/16 12:32 Dose: 100 mg Enoxaparin Sodium (Lovenox) 40 mg SC DAILY [facility] Last Admin: 12/17/16 12:34 Dose: 40 mg Gabapentin (Neurontin) 300 mg PO TID PRN PRN Reason: Pain, Mild (1-3) Sodium Chloride (Sodium Chloride 0.9%) 1,000 mls @ 100 mls/hr IV .Q10H [facility] Last Admin: 12/17/16 02:44 Dose: 100 mls/hr Insulin Human NPH (Humulin N) 55 units SC ACBD [facility] Last Admin: 12/17/16 08:43 Dose: Not Given Insulin Human Regular (Humulin R High) 0 units SC ACHS [facility] Last Admin: 12/17/16 12:36 Dose: 7 units Levothyroxine Sodium (Synthroid) 25 mcg PO ACB [facility] Last Admin: 12/17/16 12:33 Dose: 25 mcg Lisinopril (Zestril) 2.5 mg PO DAILY [facility] Last Admin: 12/17/16 12:31 Dose: 2.5 mg Magnesium Oxide (Mag-Ox) 400 mg PO BID [facility] Last Admin: 12/17/16 12:31 Dose: 400 mg Methylprednisolone (Solu-Medrol) 20 mg IVP Q12 [facility] Last Admin: 12/17/16 12:35 Dose: 20 mg Metoprolol Tartrate (Lopressor) 25 mg PO BRKDIN [facility] Last Admin: 12/17/16 12:32 Dose: 25 mg Pantoprazole Sodium (Protonix Ec Tab) 40 mg PO ACB [facility] Last Admin: 12/17/16 12:32 Dose: 40 mg Paroxetine HCl (Paxil) 20 mg PO DAILY [facility] Last Admin: 12/17/16 12:32 Dose: 20 mg Potassium Chloride (Klor-Con 10) 10 meq PO BRK [facility] Last Admin: 12/17/16 12:32 Dose: 10 meq Tramadol HCl (Ultram) 50 mg PO TID PRN PRN Reason: Pain, moderate (4-7) Last Admin: 12/16/16 14:13 Dose: 50 mg - Labs Labs: 12/16/16 06:00 12/17/16 06:40 - Constitutional Appears: No Acute Distress - Head Exam Head Exam: NORMAL INSPECTION - Eye Exam Eye Exam: Normal appearance. absent: Scleral icterus - ENT Exam ENT Exam: Mucous Membranes Moist - Neck Exam Neck Exam: Normal Inspection - Respiratory Exam Respiratory Exam: Clear to Ausculation Bilateral. absent: Respiratory Distress - Cardiovascular Exam Cardiovascular Exam: +S1, +S2 - GI/Abdominal Exam GI & Abdominal Exam: Soft, Tenderness (epigastric), Normal Bowel Sounds. absent : Guarding, Organomegaly, Rebound - Extremities Exam Extremities Exam: absent: Calf Tenderness, Pedal Edema - Neurological Exam Neurological Exam: Alert, Awake, Oriented x3 - Skin Skin Exam: Dry, Warm Assessment and Plan - Assessment and Plan (Free Text) Assessment: ASSESSMENT: Atypical chest pain, S/p stress test Periportal Lymph nodes H/O Pancreatitis, secondary to medication Chronic Hepatits C GERD H/O Stroke GB stone Sludge Fatty Liver Elevated LFT ,maybe multifactoral, will FU PLAN: On Plavix diet as tolerated continue PPI monitor LFT Ct scan pancreatic protocol, may dc home if negative, call GI with result, discuss with Dr. Villalobos and Jadiel, RN. would benefit from elective outpatient EGD at GI clinic can refer to [facility] [place] [facility] clinic, patient to FU with PCP, Dr. Mattson Seen and discussed with Dr. Figueroa.
[2016-12-17] MEDS ORDERED: Iohexol 240 (50 ml) ONE (20:30)
--- NOTE | 2016-12-17 21:51 | CARD ---
APPROVED REPORT Protocol: LEXISCAN Test Type: Lexiscan Sestamibi Stress Test Attending Physician: Dr. Maria Isabel Kearney Referring Physician: Dr. Familia Villalobos Test Indications: Chest Pain Height:4 ft 9 in Weight:171lbs Medications: Duoneb Plavix Lovenox Neurontin Insulin Synthroid Zestril Lopressor Paxil Medical History: 61 y/o female hx of chest pain Target HR: 161 bpm Resting ECG: normal Resting Heart Rate: 67 bpm Resting Blood Pressure: 124/70mmHg Submaximum (85%): 137 bpm PROCEDURE Pharmacologic stress testing was performed using 0.4mg per 5ml of regadenoson given intravenously over 7-10 seconds. Reversal agent aminophyline 100 mg, given intravenously for Nausea. POST EXERCISE Reason for Termination: Protocol completed Target HR: No Max HR: 93 bpm 60% of Maximum Predicted HR: 161 bpm Exercise duration: 00:46 min:sec, 0 Stage Exercise capacity: 1.0METs Max Blood Pressure: 124/70mmHg Blood Pressure response to exercise: normal resting BP - appropriate response Heart Rate response to exercise: appropriate Chest Pain: No, none Angina index: 0 Arrhythmia: No, none ST Change: No, none Deviation: 0 mm INTERPRETATION Stress EKG Conclusion: Negative IV Lexiscan for ischemia and for chest pain, Nuclear scan to follow. Signed by Maria Isabel Kearney Electronically Approved: 12/17/2016 11:10:53 EXAM: Myocardial Perfusion REST/STRESS Stress Test Type: Pharmacologic Imaging Protocol Rest Spect myocardial perfusion imaging was performed in supine position 65 minutes following the injection of 10.9 mCi of Tc-99 Myoview. At peak stress, the patient was injected intravenously with 30.9mCi of Tc-99 tetrofosmin after an infusion time of 0 minutes and 10 seconds. Gated Stress Spect was performed 65 minutes after intravenous Tc-99 Myoview injection. The images were gated to evaluate regional wall motion and calculate ventricular ejection fraction.Images were reconstructed using backfilter projection method in short horizontal and verticle long axis. Spect slices were generated. LV Perfusion The quality of the study is good. The left ventricle is normal in size. The right ventricle is unremarkable. The lung uptake is normal. The distribution of tracer reveals mildly and diffusely decreased perfusion involving anterior wall on the stress study. The remainder of the LV myocardium is unremarkable. The rest myocardial perfusion study shows no significant change. Wall Motion Wall motion study shows good contractility of the left ventricle. LVEF = 73%. Conclusion 1. Essentially normal SPECT myocardial perfusion study. 2. Fixed, anterior defect is most likely due to breast attenuation. 3. Normal gated wall motion of the left ventricle.
--- NOTE | 2016-12-17 23:04 | PN ---
DATE: 12/17/2016 REFERRING PHYSICIAN: Dr. Villalobos. SUBJECTIVE: The patient is lying in the bed, night was unremarkable, feels better, decreased cough, decreased shortness of breath. No nausea, no vomiting, diarrhea. No leg pain or leg swelling. OBJECTIVE: GENERAL: No acute distress. VITAL SIGNS: Temperature is 98, heart rate 62, respiratory rate is 20, blood pressure /64, puls e ox 100% on room air. HEENT: Moist mucous membranes. Crowded airway. NECK: Supple. No JVD. LUNGS: Has a fair airflow with few rhonchi. HEART: S1, S2. ABDOMEN: Soft, nontender. No organomegaly. EXTREMITIES: There is no edema. NEUROLOGIC: Awake, alert, follows simple command. MEDICATIONS: He is on doxycycline 100 mg twice a day, DuoNeb q. 6 hours, insulin coverage, potassium 10 mEq daily, metoprolol tartrate 25 mg twice a day, Lovenox 40 mg daily, mag oxide 400 mg twice gregory ly, Neurontin 300 mg 3 times a day, Paxil 20 mg daily, Plavix 75 mg daily, Protonix 40 mg daily, IV f luid normal saline 100 mL per hour, Solu-Medrol 20 mg q. 12 hours, Synthroid 25 mg before breakfast, Ultram 50 mg 3 times a day p.r.n., Zestril 2.5 mg daily. LABORATORY DATA: Reviewed and shows sodium 137, potassium 3.1, chloride 104, bicarbonate 24, BUN 10, creatinine 0.6, glucose 200, calcium is 9.4. Cholesterol is 107. Had a myocardial stress test done today that shows essentially normal SPECT myocardial perfusion study. is most likely due to _ ____ation. Normal gait and valve motion of the left ventricle. Also had a gallbladder ultrasound do ne today, which shows hepatomegaly with diffuse affected infiltrates, cholelithiasis without evidence of cholecystitis. Echocardiogram done, report is pending. IMPRESSION AND PLAN: Chronic obstructive lung disease, hypertension, diabetes, gastroparesis, nonspe cific chest pains, history of hepatitis C, retroperitoneal lymphadenopathy. The patient seen by Dr. Figueroa. Spoke to him in detail. Waiting for CT scan of the abdomen with contrast to follow up lym phadenopathy. The patient is advised to seek hepatitis C treatment as an outpatient. Pulmonary poin t of view, doing well. Discontinue Solu-Medrol, add prednisone 20 mg, taper off next 3 days or so, d oxycycline for 5 days. The patient is urged to stop smoking. Sleep apnea precaution. Recommended a ttended sleep study as outpatient. Thank you and will follow with you. Maria Isabel Avila MD cc: [id number] TT: 12/17/2016 23:04:15 Confirmation # [id number] Dictation # [id number] mn
[2016-12-18 00:40] VITALS: O2SAT 96
[2016-12-18] MEDS: Albuterol-Ipratrop 3 mg / 0.5 (3 ml) UD IH SCH ×3 (01:25→13:45)
--- NOTE | 2016-12-18 03:39 | PN ---
DATE: 12/17/2016 ADDENDUM This is an addendum to the GI progress report dictated by Amelia Perdomo APN. The patient is tolerating the diet. Feels slightly better. This patient has poorly controlled diabe cameron mellitus, atypical chest pain. History of periportal lymphadenopathy; chronic hepatitis C; histo ry of pancreatitis, probably drug-induced secondary to the Onglyza. Would recommend CT of the abdome n and pelvis with p.o. and IV contrast to further evaluate. The patient needs to be followed for her hep C, and also followup of . We will continue to closely follow up her care and suggest furt her management based on the clinical course. Thank you very much for allowing us to participate in the care of the patient. Mack Figueroa MD cc: [id number] TT: 12/18/2016 03:38:39 Confirmation # [id number] Dictation # [id number]
[2016-12-18 06:34] VITALS: RESP 20
[2016-12-18] MEDS: Sodium Chloride 0.9% 1,000 ML IV SCH (07:24)
[2016-12-18] MEDS: Insulin Human NPH 1 UNITS/0.01 ML SC SCH (07:55)
[2016-12-18] MEDS: Pantoprazole 40 mg EC Tab PO SCH (08:46)
[2016-12-18] MEDS: Potassium Chloride 10 mEq ER Tab PO SCH (08:46)
[2016-12-18] MEDS: Levothyroxine 25 MCG TAB PO SCH (08:46)
[2016-12-18] MEDS: Insulin Reg-HIGH-Coverage SC SCH ×2 (09:01→11:45)
[2016-12-18] MEDS: Magnesium Oxide 400 mg Tab UD PO SCH (09:12)
[2016-12-18] MEDS: Enoxaparin 40 mg Syringe SC SCH (09:14)
--- NOTE | 2016-12-18 09:40 | PN ---
DATE: 12/18/2016 REASON FOR CONSULTATION: Cardiac evaluation, neck pain, chest pain, abnormal EKG, tenderness in the chest, negative stress test. BRIEF CLINICAL HISTORY: This is a 61-year-old female with a past medical history significant for norbert betes, hypertension, hyperlipidemia. Came [place] complaining of elevated sugar, who was r ecently admitted to [facility], discharged, came in with and says ran out and also complained of the chest pain. Having multiple risk factors, patient underwent echo and a stress test. Stress test is negative. Denies any chest pain, shortness of breath, any palpitation. PHYSICAL EXAMINATION: VITAL SIGNS: Temperature afebrile, heart rate 65, blood pressure 112/58. HEENT: PERRLA. Extraocular muscles intact. NECK: Supple. No carotid bruits. No thyromegaly. CHEST: Clear to auscultation. HEART: S1, S2 regular. ABDOMEN: Soft. EXTREMITIES: Clubbing, cyanosis negative. WBC 5.3, hemoglobin 12. , hematocrit 35.4, platelet count 211. Chemistry shows sodium 130, potas sium 3.9, chloride 104, carbon dioxide , anion gap of 13, BUN 10, creatinine 0.6. TSH 6.68. IMPRESSION: Hypothyroidism, stress test yesterday showed essentially normal 73%, diabetes, hyp ertension, hyperlipidemia. RECOMMENDATION: Aggressive medical treatment. Discontinue telemetry. Further recommendation as per Dr. Villalobos/Dr. Avila. We will follow with you. Thank you, Dr. Villalobos, for providing us the opportunity in taking care of the patient. Maria Isabel Kearney MD cc: [id number] TT: 12/18/2016 09:40:25 Confirmation # [id number] Dictation # [id number] en
--- NOTE | 2016-12-18 13:16 | CP.PCM.PN ---
<Patsy Silverman - Last Filed: 12/18/16 13:17> Subjective - Date & Time of Evaluation Date of Evaluation: 12/18/16 Time of Evaluation: 13:14 - Subjective Subjective: GI for Dr. Figueroa Pt s&eMelba DAI. Pt having BM. Tolerating diet. Pain controlled. +amb. +void Objective - Vital Signs/Intake and Output Vital Signs (last 24 hours): Temp Pulse Resp BP Pulse Ox 98.1 F 57 L 20 119/64 96 12/18/16 06:00 12/18/16 10:00 12/18/16 06:00 12/18/16 09:12 12/18/16 06:00 Intake and Output: 12/18/16 12/18/16 06:59 18:59 Intake Total 600 Balance 600 - Medications Medications: Current Medications Albuterol/Ipratropium (Duoneb 3 Mg/0.5 Mg (3 Ml) Ud) 3 ml IH [id number] [facility] Last Admin: 12/18/16 07:56 Dose: 3 ml Clopidogrel Bisulfate (Plavix) 75 mg PO DAILY [facility] Last Admin: 12/18/16 09:12 Dose: 75 mg Doxycycline Hyclate (Doryx) 100 mg PO Q12 [facility] PRN Reason: Protocol Last Admin: 12/18/16 09:12 Dose: 100 mg Enoxaparin Sodium (Lovenox) 40 mg SC DAILY [facility] Last Admin: 12/18/16 09:14 Dose: 40 mg Gabapentin (Neurontin) 300 mg PO TID PRN PRN Reason: Pain, Mild (1-3) Sodium Chloride (Sodium Chloride 0.9%) 1,000 mls @ 100 mls/hr IV .Q10H [facility] Last Admin: 12/18/16 07:24 Dose: 100 mls/hr Insulin Human NPH (Humulin N) 55 units SC ACBD [facility] Last Admin: 12/18/16 07:55 Dose: 55 units Insulin Human Regular (Humulin R High) 0 units SC ACHS [facility] Last Admin: 12/18/16 11:45 Dose: 12 units Levothyroxine Sodium (Synthroid) 25 mcg PO ACB [facility] Last Admin: 12/18/16 08:46 Dose: 25 mcg Lisinopril (Zestril) 2.5 mg PO DAILY [facility] Last Admin: 12/18/16 09:12 Dose: 2.5 mg Magnesium Oxide (Mag-Ox) 400 mg PO BID [facility] Last Admin: 12/18/16 09:12 Dose: 400 mg Metoprolol Tartrate (Lopressor) 25 mg PO BRKDIN [facility] Last Admin: 12/18/16 08:59 Dose: Not Given Pantoprazole Sodium (Protonix Ec Tab) 40 mg PO ACB [facility] Last Admin: 12/18/16 08:46 Dose: 40 mg Paroxetine HCl (Paxil) 20 mg PO DAILY [facility] Last Admin: 12/18/16 09:12 Dose: 20 mg Potassium Chloride (Klor-Con 10) 10 meq PO BRK [facility] Last Admin: 12/18/16 08:46 Dose: 10 meq Prednisone (Prednisone Tab) 20 mg PO DAILY [facility] Last Admin: 12/18/16 09:12 Dose: 20 mg Tramadol HCl (Ultram) 50 mg PO TID PRN PRN Reason: Pain, moderate (4-7) Last Admin: 12/16/16 14:13 Dose: 50 mg - Labs Labs: 12/16/16 06:00 12/17/16 06:40 - Constitutional Appears: No Acute Distress - Head Exam Head Exam: ATRAUMATIC, NORMAL INSPECTION, NORMOCEPHALIC - Eye Exam Eye Exam: EOMI, Normal appearance, PERRL Pupil Exam: NORMAL ACCOMODATION, PERRL - ENT Exam ENT Exam: Mucous Membranes Moist, Normal Exam - Neck Exam Neck Exam: Full ROM, Normal Inspection. absent: Lymphadenopathy - Respiratory Exam Respiratory Exam: Clear to Ausculation Bilateral, NORMAL BREATHING PATTERN - Cardiovascular Exam Cardiovascular Exam: REGULAR RHYTHM, +S1, +S2. absent: Murmur - GI/Abdominal Exam GI & Abdominal Exam: Soft, Normal Bowel Sounds. absent: Distended, Firm, Guarding, Rigid, Tenderness - Extremities Exam Extremities Exam: Full ROM, Normal Capillary Refill, Normal Inspection. absent : Joint Swelling, Pedal Edema - Back Exam Back Exam: NORMAL INSPECTION - Neurological Exam Neurological Exam: Alert, Awake, CN II-XII Intact, Normal Gait, Oriented x3 - Psychiatric Exam Psychiatric exam: Normal Affect, Normal Mood - Skin Skin Exam: Dry, Intact, Normal Color, Warm Assessment and Plan - Assessment and Plan (Free Text) Assessment: Atypical chest pain, S/p stress test Periportal Lymph nodes H/O Pancreatitis, secondary to medication Chronic Hepatits C GERD H/O Stroke GB stone Sludge Fatty Liver Elevated LFT ,maybe multifactoral, will FU PLAN: On Plavix diet as tolerated continue PPI monitor LFT Ct scan pancreatic protocol, may dc home if negative, call GI with result, discuss with Dr. Villalobos and Jadiel, RN. Taken: Constipation, food material with contrast in stomach possibley 2/2 gastroperesis, gastric outlet obstruction. f/u official reads would benefit from elective outpatient EGD at GI clinic can refer to [facility] GI clinic, patient to FU with PCP, Dr. Mattson Seen and discussed with Dr. Figueroa. <Mack Figueroa V - Last Filed: 01/30/17 20:52> Objective - Vital Signs/Intake and Output Vital Signs (last 24 hours): Temp Pulse Resp BP Pulse Ox 98.7 F 61 20 115/64 96 12/18/16 12:00 12/18/16 12:00 12/18/16 12:00 12/18/16 12:00 12/18/16 06:00 - Labs Labs: 12/16/16 06:00 12/17/16 06:40 Assessment and Plan - Assessment and Plan (Free Text) Assessment: Addendum to the GI Progress note of Dr. Silverman. Patient was seen, examined and chart reviewed. Agree with assessment and plan as outlined above.
[2016-12-18 13:31] VITALS: BP 115/64; PULSE 61; TEMP 98.7
--- NOTE | 2016-12-18 15:28 | PN ---
DATE: 12/18/2016 REFERRING PHYSICIAN: Dr. Villalobos. SUBJECTIVE: She is sitting side of the bed, feels better. Night was unremarkable. Cough better, sh ortness of breath is better, no nausea, no leg pain or leg swelling. OBJECTIVE: GENERAL: No acute distress. VITAL SIGNS: Temp is 98, heart rate 61, respiratory rate is 20, blood pressure 115/64. HEENT: Moist mucous membranes. Crowded airway. Mallampati score is 4. NECK: Supple. No JVD. LUNGS: Has a fair airflow with few rhonchi. HEART: S1, S2. ABDOMEN: Soft, nontender. No organomegaly. EXTREMITIES: There is no edema. NEUROLOGIC: Awake, alert, follows simple command. MEDICATIONS: She is on doxycycline 100 mg twice a day, DuoNeb q. 6 hours, insulin coverage, potassi um, 10 mEq daily, metoprolol tartrate 25 mg twice a day, Lovenox 40 mg daily, mag oxide 400 mg twice, Neurontin 300 mg 3 times a day p.r.n., Paxil 20 mg daily, Flexeril 5 mg daily, prednisone 20 mg nilson y, Protonix 40 mg daily, IV fluid normal saline 100 mL per hour, Synthroid 25 mEq ACB, Ultram 50 mg 3 times a day p.r.n., Zestril 2.5 mg daily. LABORATORY DATA: Shows sodium 137 yesterday. Hepatitis C antibody is reactive. Urine culture is un remarkable. Had a pancreatic CT done, the report is still pending. IMPRESSION AND PLAN: Chronic obstructive lung disease, hypertension, diabetes, gastroparesis. No sp ecific chest, history of hepatitis C, retroperitoneal lymph nodes, may have a component of sleep apne a syndrome. I spoke to the patient in detail about cigarette smoking and its leak to sleep apnea and obstructive lung disease, encouraged her to stop smoking. GI ____ , followed by Dr. Figueroa. Pulm onary point of view ____, patient also needs attended sleep study. Thank you and will follow with jean-pierre tom. Maria Isabel Avila MD cc: [id number] TT: 12/18/2016 15:27:54 Confirmation # [id number] Dictation # [id number]
--- NOTE | 2016-12-18 18:01 | CARD ---
APPROVED REPORT EXAM: Two-dimensional and M-mode echocardiogram with Doppler and color Doppler. INDICATION Chest Pain 2D DIMENSIONS Left Atrium (2D)3.7 (1.6-4.0cm)IVSd0.8 (0.7-1.1cm) LVDd4.4 (3.9-5.9cm)PWd1.0 (0.7-1.1cm) LVDs2.8 (2.5-4.0cm)FS (%) 36.7 % LVEF (%)66.8 (>50%) M-Mode DIMENSIONS Aortic Root2.70 (2.2-3.7cm)Aortic Cusp Exc.1.60 (1.5-2.0cm) Aortic Valve AoV Peak Wolmbpon085.0cm/Vitaliy Peak GR.10mmHg Mitral Valve MV E Jxpporsh920.0cm/sMV A Nztifyfr16.0cm/sE/A ratio1.4 TDI Lateral E' Peak V10.10cm/sMedial E' Peak V9.75cm/sE/Lateral E'10.4 E/Medial E'10.8 Pulmonary Valve PV Peak Xulfwpbu65.0cm/sPV Peak Grad.2mmHg Tricuspid Valve TR Peak Ywcwzexz999ez/sRAP [id number] Peak Gr.22mmHg [id number] LEFT VENTRICLE The left ventricle is normal size. There is normal left ventricular wall thickness. The left ventricular function is normal.EF-65% There is normal LV segmental wall motion. The left ventricular diastolic function is normal. No left ventricle thrombus noted on this study. There is no ventricular septal defect visualized. There is no left ventricular aneurysm. There is no mass noted in the left ventricle. RIGHT VENTRICLE The right ventricle is normal size. There is normal right ventricular wall thickness. The right ventricular systolic function is normal. ATRIA The left atrium size is normal. The right atrium size is normal. The interatrial septum is intact with no evidence for an atrial septal defect. AORTIC VALVE The aortic valve is thickened but opens well. No aortic regurgitation is present. There is no aortic valvular stenosis. There is no aortic valvular vegetation. MITRAL VALVE The mitral valve is thickened but opens well. Mitral regurgitation is trace. There is no mitral valve stenosis. There is no evidence of mitral valve prolapse. TRICUSPID VALVE The tricuspid valve leaflets are thickened , but open well. There is mild tricuspid regurgitation.RVSP-32 mmof Hg. There is no tricuspid valve stenosis. There is no tricuspid valve prolapse or vegetation. PULMONIC VALVE The pulmonic valve is mildly thickened. There is trace pulmonic valvular regurgitation. There is no pulmonic valvular stenosis. GREAT VESSELS The aortic root is normal in size. The ascending aorta is normal in size. The pulmonary artery is normal. The IVC is normal in size and collapses >50% with inspiration. PERICARDIAL EFFUSION There is no pleural effusion. There is no pericardial effusion. <Conclusion> Normal Chamber Size. EF-65% Trace MR Trace PI Mild Tr, RVBSP-32 mmof Hg.
--- NOTE | 2016-12-18 18:36 | CT ---
PROCEDURE: CT Abdomen and Pelvis with contrast HISTORY: periportal lymph nodes COMPARISON: Comparison is made to the previous study dated 03/06/2016 TECHNIQUE: Contrast dose: 150 Omnipaque 350. Technique: Axial and reformatted coronal and sagittal CT images of the abdomen were obtained before and after IV contrast administration. Oral contrast was given. Delayed images of the abdomen and pelvis were also obtained. Radiation dose: Total exam DLP = 2931.07 mGy-cm. This CT exam was performed using one or more of the following dose reduction techniques: Automated exposure control, adjustment of the mA and/or kV according to patient size, and/or use of iterative reconstruction technique. FINDINGS: LOWER THORAX: Unremarkable. LIVER: Mild hepatomegaly is again noted. The portal vein is patent. No evidence of suspicious mass in the liver. Again seen are mildly enlarged sera hepatis and periportal lymph nodes. GALLBLADDER AND BILE DUCTS: Unremarkable. PANCREAS: Unremarkable. No gross lesion or ductal dilatation. No CT evidence of pancreatic mass . SPLEEN: Unremarkable. ADRENALS: Unremarkable. No mass. KIDNEYS AND URETERS: Unremarkable. No hydronephrosis. No solid mass. VASCULATURE: Unremarkable. No aortic aneurysm. BOWEL: Unremarkable. No obstruction. No gross mural thickening. APPENDIX: Normal appendix. PERITONEUM: Unremarkable. No free fluid. No free air. LYMPH NODES: No evidence of retroperitoneal lymphadenopathy. BLADDER: Slightly low position of the bladder is again noted. REPRODUCTIVE: Patient is likely status post partial hysterectomy. BONES: No acute fracture. OTHER FINDINGS: None. IMPRESSION: No evidence of acute pathology or mass lesion in the pancreas. No evidence of significant interval change since the previous study dated 03/06/2016. Stable mildly enlarged periportal and sera hepatis lymph nodes.
--- NOTE | 2016-12-18 19:38 | DS ---
This is a 61-year-old female. She was admitted with chest pain. Cardiology eval, Dr. Kearney has seen the patient. GI consult, Dr. Figueroa has seen the patient. This patient underwent nuclear stress t est which came back negative day of discharge. Also she was seen by GI consult who recommended a CT to the pancreas to rule out any pancreatic cancer. Ultrasound of the abdomen, liver and gallbladder noted for gallstones, also fatty liver, otherwise negative. The patient clinically stable. She has no new complaint. She was maintained on some antibiotics, doxycycline, urinalysis came back negative and it felt like unnecessary to give antibiotic, will discontinue that. She also maintained on insu mir. A prescription for insulin was given to the patient. Protonix was given to the patient and she should also get a GI consultation, prescription, to follow up with her primary doctor for further ev aluation including endoscopy. The patient clinically stable. PHYSICAL EXAMINATION ON 12/17/2016: VITAL SIGNS: Temp 98.8, heart rate 62, blood pressure 129/64, respirations 20, saturation 96% on cammy m air. HEAD AND NECK: Normal. No JVD, no thyromegaly. CHEST: Clear, good entry. CARDIAC: First and second sounds are normal. ABDOMEN: Soft, mild epigastric tenderness. EXTREMITIES: No edema. NEUROLOGIC: Normal. LABORATORY DATA: She was stable. Her H and H stable. There are no new complaints. Her sodium 137, potassium 3.9, chloride 104, bicarbonate 24, BUN 10, creatinine 0.6, blood sugar 200, calcium 9.4, h emoglobin A1c 10.7, TSH 6.68 and her LDL was 107. DISCHARGE DIAGNOSES: 1. Epigastric pain, abdominal pain, probably gastritis. 2. Chest pain, atypical, negative nuclear stress test. 3. Gallstones. 4. Hypothyroidism. The patient was given levothyroxine 25 mcg, which is new, prescription will be kylie roblero to the patient for that. 5. Obesity. 6. Hypertension. 7. Hypercholesterolemia. 8. Depression. PLAN: Discharge the patient on the following medications, which include all her medicines that she w as taking before in addition to metoprolol 25 mg b.i.d., mag oxide twice a day, also we are going to give her Synthroid 25 mcg once a day. The patient also was given lisinopril 2.5 mg which she had at home. Continue all other medication as she was taking at home. Follow up with her primary doctor shawn ferrera her adjustment of medications and follow up with him, ____. The patient is ALLERGIC TO ASPIRIN, she is ALLERGIC TO IBUPROFEN. Familia Villalobos MD cc: 223 TT: 12/18/2016 19:38:07 jn
== END 2016-12-18 15:20 | disposition home or self-care (01) ==
LOC: ED 15:46 → ERH 19:17 → 2RNO 22:17
PROVIDERS: ADMIT Internal Medicine; ATTEND Internal Medicine
DX: R07.89 Other chest pain (principal); K80.20 Calculus of gallbladder without cholecystitis without obstruction; E03.9 Hypothyroidism, unspecified; I10 Essential (primary) hypertension; E78.00 Pure hypercholesterolemia, unspecified; E11.43 Type 2 diabetes mellitus with diabetic autonomic (poly)neuropathy; K31.84 Gastroparesis; F43.21 Adjustment disorder with depressed mood; E66.9 Obesity, unspecified; B18.2 Chronic viral hepatitis C; K21.9 Gastro-esophageal reflux disease without esophagitis; I25.2 Old myocardial infarction; R10.13 Epigastric pain; E11.65 Type 2 diabetes mellitus with hyperglycemia; M19.90 Unspecified osteoarthritis, unspecified site; R29.6 Repeated falls; Z79.4 Long term (current) use of insulin; G47.30 Sleep apnea, unspecified; K76.0 Fatty (change of) liver, not elsewhere classified; E11.42 Type 2 diabetes mellitus with diabetic polyneuropathy; E83.42 Hypomagnesemia; I25.10 Atherosclerotic heart disease of native coronary artery without angina pectoris; J44.9 Chronic obstructive pulmonary disease, unspecified; E78.5 Hyperlipidemia, unspecified; K29.70 Gastritis, unspecified, without bleeding; R59.0 Localized enlarged lymph nodes; Z86.73 Personal history of transient ischemic attack (TIA), and cerebral infarction without residual deficits; Z88.6 Allergy status to analgesic agent; Z68.36 Body mass index [BMI] 36.0-36.9, adult; Z91.19 Patient's noncompliance with other medical treatment and regimen
CPT/HCPCS: 36415; 70450; 71010; 74177; 76705; 78452; 80048; 80053; 80061; 80074; 81003; 82550; 82803; 82948; 83036; 83605; 83615; 83735; 84100; 84443; 84484; 85025; 87086; 93005; 93017; 93306; 94640; 94760; 96365; 96372; 96375; 96376; 99285; A9502; C9113; G0378; J1650; J2405; J2920; J3475; J7040; Q9966; Q9967